=== PATIENT | male | born 1990 ===

== ENCOUNTER 2016-12-26 09:25 | Inpatient (IN) | payer MEDICAID ==
[2016-12-26 09:32] VITALS: BMI 33.4
[2016-12-26] MEDS ORDERED: Sodium Chloride 0.9% 1,000 ML IV STA (09:56)
--- NOTE | 2016-12-26 09:59 | ED PDOC ---
HPI: General Adult Time Seen by Provider: 12/26/16 09:46 Chief Complaint (Provider): Rectal bleeding History Per: Patient History/Exam Limitations: no limitations Onset/Duration Of Symptoms: Days (Yesterday) Have you had recent travel within the past 21 days to any of the following countries: [place], [place], [place] or [place]?: No Current Symptoms Are (Timing): Still Present Additional Complaint(s): Pt. felt weak yesterday. Today he felt light-headed as well. Pt. then noted red blood in stool. Has hx of the same with an ulcer in colon that was patched. Denies any abd pain, chest pain, dyspnea. No numbness, tingles. No leg pain. Has had transfusions in the past. GI: does not know PCP: Axel Past Medical History Reviewed: Nursing Documentation, Vital Signs Vital Signs: Last Vital Signs Temp 99.1 F 12/26/16 09:32 Pulse 97 H 12/26/16 09:32 Resp 17 12/26/16 09:32 BP 110/72 12/26/16 09:32 Pulse Ox 98 12/26/16 12:59 - Medical History PMH: Anemia Denies: Diabetes, Hepatitis, HIV, HTN, Seizures, Sexually Transmitted Disease Other PMH: GI bleed - Surgical History Surgical History: Endoscopy (and colonoscopy) - Family History Family History: States: Unknown Family Hx - Living Arrangements Living Arrangements: With Family - Social History Current smoker - smoking cessation education provided: No Alcohol: None Drugs: Denies - Immunization History Hx Tetanus Toxoid Vaccination: No Hx Influenza Vaccination: No Hx Pneumococcal Vaccination: No - Allergies Allergies/Adverse Reactions: Allergies Allergy/AdvReac Type Severity Reaction Status Date / Time Penicillins Allergy RASH Verified 11/25/16 14:11 Review of Systems ROS Statement: Except As Marked, All Systems Reviewed And Found Negative Constitutional: Positive for: Weakness Gastrointestinal: Positive for: Hematochezia Neurological: Positive for: Weakness, Dizziness Physical Exam - Reviewed Nursing Documentation Reviewed: Yes Vital Signs Reviewed: Yes - Physical Exam Appears: Positive for: Uncomfortable Head Exam: Positive for: ATRAUMATIC, NORMAL INSPECTION, NORMOCEPHALIC Skin: Positive for: Normal Color, Warm, DRY Eye Exam: Positive for: EOMI, Normal appearance, PERRL ENT: Positive for: Normal ENT Inspection Neck: Positive for: Normal, Painless ROM Cardiovascular/Chest: Positive for: Regular Rate, Rhythm Respiratory: Positive for: CNT, Normal Breath Sounds Gastrointestinal/Abdominal: Positive for: Normal Exam, Bowel Sounds, Soft. Negative for: Tenderness Back: Positive for: Normal Inspection. Negative for: L CVA Tenderness, R CVA Tenderness Rectal: Positive for: Other (gross dark red blood present) Extremity: Positive for: Normal ROM. Negative for: Tenderness, Pedal Edema Neurologic/Psych: Positive for: Alert, Oriented - Laboratory Results Result Diagrams: 12/26/16 10:35 12/26/16 11:10 Interpretation Of Abn Labs: 7.8 hg - ECG ECG: Positive for: Interpreted By Me, Viewed By Me ECG Rhythm: Positive for: Right Bundle Branch Block O2 Sat by Pulse Oximetry: 98 Pulse Ox Interpretation: Normal - Progress ED Course And Treament: 1248: Spoke with Dr. Patino. Will admit and give further orders when pt. reaches floor. Will give 2 units prbcs considering symptomatic. AAOx3. 1305: Stable. Spoke with Dr. Pricne. Will consult. Agrees with current plan and management. - Critical Care Total Time (In Min): 30 Documented Critical Care: Time excludes all time spent performint seperately billable procedures Disposition - Clinical Impression Clinical Impression: Anemia, GI bleed - Patient ED Disposition Is Patient to be Admitted: Yes Counseled Patient/Family Regarding: Studies Performed, Diagnosis - Disposition Disposition Time: 12:58 Condition: FAIR - Pt Status Changed To: Hospital Disposition Of: Inpatient - Admit Certification Admit to Inpatient:: After my assessment, the patient will require hospitalization for at least two midnights. This is because of the severity of symptoms shown, intensity of services needed, and/or the medical risk in this patient being treated as an outpatient. - POA Present On Arrival: None
[2016-12-26 11:03] LABS: BASO % 0.7 % (0.0-2.0); EOS % 0.7 % (0.0-4.0); HEMATOCRIT 23.8 % (35.0-51.0); LYMPH # 1.1 K/uL (1.0-4.3); LYMPH % 22.7 % (20.0-40.0); MEAN CELL VOLUME 78.2 fl (80.0-94.0); MEAN CORPUSCULAR HEMOGLOBIN 25.6 pg (27.0-31.0); MEAN CORPUSCULAR HGB CONC 32.7 g/dL (33.0-37.0); MEAN PLATELET VOLUME 8.8 fl (7.2-11.7); MONO # 0.4 K/uL (0.0-0.8); MONO % 8.6 % (0.0-10.0); NEUT # 3.3 K/uL (1.8-7.0); NEUT % 67.3 % (50.0-75.0); NRBC % 0.1 % (0.0-0.0); RED CELL DISTRIBUTION WIDTH 20.4 % (11.5-14.5); WHITE BLOOD COUNT 4.9 K/uL (4.8-10.8)
[2016-12-26 11:09] LABS: ALB/GLOB RATIO 1.4 (1.0-2.1); ALKALINE PHOSPHATASE 53 U/L (38-126); ALT/SGPT 33 U/L (21-72); AST/SGOT 26 U/L (17-59); BILIRUBIN,TOTAL 0.3 mg/dl (0.2-1.3); BLOOD UREA NITROGEN 17 mg/dl (9-20); CALCIUM 8.8 mg/dL (8.4-10.2); CARBON DIOXIDE 23 mmol/L (22-30); CHLORIDE 104 mmol/L (98-107); GFR AFRICAN-AMERICAN > 60; GLUCOSE,RANDOM 91 mg/dL (75-110); SODIUM 137 mmol/l (132-148)
[2016-12-26 11:14] LABS: PARTIAL THROMBOPLASTIN TIME 27.2 Seconds (25.6-37.1)
[2016-12-26] MEDS ORDERED: Desmopressin 4 mcg/ml Inj (10 ml) IM ONE (15:15)
--- NOTE | 2016-12-26 19:48 | CP.PCM.CON ---
History of Present Illness - History of Present Illness History of Present Illness: 26 yo male with h/o gastric bypass about 10 years ago with dark red bleeding per rectum since this morning.Had similar episodes and seen at [facility] in August of this year and 3 weeks ago. In August he was told an ulcer was present but he doesn't know where. 3 weeks ago source of bleed could not be found. Had upper and lower enoscopies during both admissions. H/o chronic iron deficiency and is on supplement. Not on SSRI. On rare occasions uses excedrin for headaches. Review of Systems - Constitutional Constitutional: absent: Chills - EENT Eyes: absent: Blind Spots Ears: absent: Decreased Hearing Nose/Mouth/Throat: absent: Epistaxis - Cardiovascular Cardiovascular: absent: Chest Pain - Respiratory Respiratory: absent: Cough - Gastrointestinal Gastrointestinal: As Per HPI - Genitourinary Genitourinary: absent: Change in Urinary Stream Past Patient History - Past Medical History & Family History Past Medical History?: Yes - Past Social History Smoking Status: Never Smoked - CARDIAC Hx Hypertension: No - PULMONARY Hx Tuberculosis: No - NEUROLOGICAL Hx Seizures: No - HEMATOLOGICAL/ONCOLOGICAL Hx Anemia: Yes Hx Human Immunodeficiency Virus (HIV): No - MUSCULOSKELETAL/RHEUMATOLOGICAL Hx Falls: No Hx Herniated Disk: Yes - GASTROINTESTINAL Hx Ulcer: Yes Other/Comment: gastric bypass 2007 - GENITOURINARY/GYNECOLOGICAL Hx Sexually Transmitted Disorders: No - PSYCHIATRIC Hx Substance Use: No Other/Comment: substance abuse - SURGICAL HISTORY Other/Comment: R shoulder pinning after accident - ANESTHESIA Hx Anesthesia: Yes Hx Anesthesia Reactions: No Meds Allergies/Adverse Reactions: Allergies Allergy/AdvReac Type Severity Reaction Status Date / Time Penicillins Allergy RASH Verified 11/25/16 14:11 - Medications Medications: Current Medications Pantoprazole Sodium (Protonix Inj) 40 mg IVP DAILY AKIL Zolpidem Tartrate (Ambien) 5 mg PO HS AKIL Physical Exam - Constitutional Appears: Well - Head Exam Head Exam: ATRAUMATIC - Eye Exam Eye Exam: Normal appearance Pupil Exam: NORMAL ACCOMODATION - ENT Exam ENT Exam: Mucous Membranes Moist - Neck Exam Neck exam: Positive for: Normal Inspection - Respiratory Exam Respiratory Exam: Clear to Auscultation Bilateral - Cardiovascular Exam Cardiovascular Exam: REGULAR RHYTHM - GI/Abdominal Exam GI & Abdominal Exam: Normal Bowel Sounds, Soft. absent: Tenderness - Extremities Exam Extremities exam: Positive for: normal inspection Results - Vital Signs Recent Vital Signs: Last Vital Signs Temp 98.0 F 12/26/16 14:35 Pulse 80 12/26/16 16:25 Resp 18 12/26/16 16:25 BP 102/66 12/26/16 14:35 Pulse Ox 98 12/26/16 14:35 - Labs Result Diagrams: 12/26/16 10:35 12/26/16 11:10 Labs: Laboratory Results - last 24 hr 12/26/16 12:57 Blood Type Confirm O POSITIVE Assessment & Plan (1) GI bleed Assessment and Plan: Source of bleed unknown. Upper and lower endoscopy Tuesday to rule out ulcer, mass, or ectatic blood vessel. Followed possibly by Meckel scan. Patient is type O blood so DDAVP given and no active bleeding currently. Agree with transfusiion and for now, use of pantoprazole Status: Acute
[2016-12-27 05:57] LABS: HEMATOCRIT 23.2 % (35.0-51.0); MEAN CORPUSCULAR HGB CONC 31.7 g/dL (33.0-37.0); RED CELL DISTRIBUTION WIDTH 18.9 % (11.5-14.5); WHITE BLOOD COUNT 4.4 K/uL (4.8-10.8)
--- NOTE | 2016-12-27 07:45 | CARD ---
APPROVED REPORT EKG Measurement Heart [id number] <Conclusion> Normal sinus rhythm Normal ECG
[2016-12-27] MEDS ORDERED: Chlorhexidine Gluconate 1 APPL/PKT TP ONE (11:53)
[2016-12-27] MEDS ORDERED: Propofol 10 mg/ml Inj (20 ML) ONE ×2 (13:05→13:34)
[2016-12-27] MEDS ORDERED: Midazolam 2 MG/2 ML VIAL ONE (13:05)
[2016-12-27] MEDS ORDERED: Lactated Ringer's 500 ML IV ONE (13:20)
--- NOTE | 2016-12-27 13:36 | HP ---
HISTORY OF PRESENT ILLNESS: Mr. Jones is a 26-year-old male who was admitted via the emergency room because of abdominal discomfort and rectal bleeding on the morning of admission. He indicates that he had bright red blood per rectum, but now has small blood clots and dark stools. He also has abdominal discomfort for the past 24 hours. He was recently admitted to [facility] for similar episode and he has had multiple endoscopies indicates that he has had a clear answer as to why he keeps having gastrointestinal bleeding. PAST MEDICAL HISTORY: He had a past medical history of gastric bypass surgery 10 years ago and has had chronic anemia since. FAMILY HISTORY: Unremarkable. SOCIAL HISTORY: Socially, he does not drink or smoke. REVIEW OF SYSTEMS: Remarkable for the patient having abdominal discomfort. PHYSICAL EXAMINATION: GENERAL: The patient is alert, oriented, and appears to be in some discomfort because of abdominal cramps. VITAL SIGNS: Blood pressure 138/76, pulse of 70 and respiratory rate of 20. He is afebrile. O2 sat is 98% on room air. SKIN: Shows fair turgor. HEENT: Pupils are equal and reactive to light and accommodation. Mouth shows fair hygiene. NECK: JVP flat. LUNGS: Clear. HEART: Regular. No murmur, rub or gallop. ABDOMEN: There has been epigastric tenderness; otherwise, unremarkable. No organomegaly. Normoactive bowel sounds noted. GENITALIA: Normal. RECTAL: Unremarkable except for bloody stools. EXTREMITIES: Show no edema or cyanosis. CENTRAL NERVOUS SYSTEM: Grossly intact. LABORATORY DATA: Remarkable for hemoglobin of 7.4. There is prior transfusion of 3 units of packed blood cells. Sodium 137, potassium 4.0, BUN 17, and creatinine is 0.7. IMPRESSION: Acute gastrointestinal bleeding with iron-deficiency anemia and history of gastric bypass surgery. PLAN: Gastroenterology evaluation for possible endoscopy and colonoscopy. Transfusion of packed red blood cells. Monitor hemoglobin closely. Boni Patino MD
--- NOTE | 2016-12-27 14:20 | RAD ---
PROCEDURE: CHEST RADIOGRAPH, 1 VIEW Technique: Single view portable semi erect @ 09:50. HISTORY: anemia COMPARISON: None available. FINDINGS: LUNGS: Clear. PLEURA: No pneumothorax or pleural fluid seen. CARDIOVASCULAR: Normal. OSSEOUS STRUCTURES: No significant abnormalities. Incompletely visualized orthopedic hardware proximal right humerus. VISUALIZED UPPER ABDOMEN: Normal. OTHER FINDINGS: None. IMPRESSION: No active disease.
[2016-12-27 18:07] LABS: BASO % 0.6 % (0.0-2.0); EOS # 0.2 K/uL (0.0-0.7); EOS % 4.4 % (0.0-4.0); HEMATOCRIT 26.7 % (35.0-51.0); LYMPH # 1.3 K/uL (1.0-4.3); MEAN CELL VOLUME 82.1 fl (80.0-94.0); MEAN CORPUSCULAR HEMOGLOBIN 26.3 pg (27.0-31.0); MEAN PLATELET VOLUME 8.7 fl (7.2-11.7); MONO # 0.4 K/uL (0.0-0.8); MONO % 8.3 % (0.0-10.0); NEUT # 3.2 K/uL (1.8-7.0); NEUT % 61.7 % (50.0-75.0); WHITE BLOOD COUNT 5.2 K/uL (4.8-10.8)
[2016-12-27] MEDS ORDERED: DiphenhydrAMINE 50 mg/ml Inj IVP ONE (19:16)
[2016-12-27] MEDS ORDERED: Hydrocortisone- 100 MG in Sodium Chloride 0.9% 100 ML IVP ONE (19:23)
--- NOTE | 2016-12-27 21:52 | CP.PCM.CON ---
History of Present Illness - History of Present Illness History of Present Illness: 26 year old male with a history of gastric bypass, chronic iron deficiency anemia, intermittent GI bleeding, admitted with hematochezia and symptomatic anemia s/p PRBC transfusion with concern for transfusion reaction. The patient is receiving PRBC transfusions for symptomatic anemia and GI bleeding. Tonight , he began to experience dizzyness and itching during transfusion. The transfusion was stopped and the patient received tylenol benadryl, and hydrocortisone. His transfusion has been restarted 30 minutes after premedication and he denies further symptoms. Past medical history: Chronic GI bleeding, iron deficiency anemia Past surgical history: Gastric bypass and right shoulder surgery Family history: Denies hematologic and oncologic problems Social history: Denies tobacco, alcohol, and illicit drug use. Allergies: Penicillins Review of systems: All remaining review of systems including HEENT, cardiovascular, respiratory, gastrointestinal, genitourinary, musculoskeletal, dermatologic, neurologic, and psychiatric are negative unless mentioned in the HPI. Past Patient History - Past Medical History & Family History Past Medical History?: Yes - Past Social History Smoking Status: Never Smoked - CARDIAC Hx Hypertension: No - PULMONARY Hx Tuberculosis: No - NEUROLOGICAL Hx Seizures: No - HEMATOLOGICAL/ONCOLOGICAL Hx Anemia: Yes Hx Human Immunodeficiency Virus (HIV): No - MUSCULOSKELETAL/RHEUMATOLOGICAL Hx Falls: No Hx Herniated Disk: Yes - GASTROINTESTINAL Hx Ulcer: Yes Other/Comment: gastric bypass 2007 - GENITOURINARY/GYNECOLOGICAL Hx Sexually Transmitted Disorders: No - PSYCHIATRIC Hx Substance Use: No Other/Comment: substance abuse - SURGICAL HISTORY Other/Comment: R shoulder pinning after accident - ANESTHESIA Hx Anesthesia: Yes Hx Anesthesia Reactions: No Meds Allergies/Adverse Reactions: Allergies Allergy/AdvReac Type Severity Reaction Status Date / Time Penicillins Allergy RASH Verified 11/25/16 14:11 - Medications Medications: Current Medications Methadone HCl (Methadone) 70 mg PO DAILY [facility] Last Admin: 12/27/16 15:50 Dose: 70 mg Zolpidem Tartrate (Ambien) 5 mg PO HS [facility] Last Admin: 12/26/16 23:57 Dose: 5 mg Physical Exam - Head Exam Head Exam: ATRAUMATIC - Eye Exam Eye Exam: Normal appearance - ENT Exam ENT Exam: Mucous Membranes Dry - Respiratory Exam Respiratory Exam: NORMAL BREATHING PATTERN - Cardiovascular Exam Cardiovascular Exam: +S1, +S2 - GI/Abdominal Exam GI & Abdominal Exam: Normal Bowel Sounds - Extremities Exam Extremities exam: Positive for: normal inspection - Neurological Exam Neurological exam: Oriented x3 - Psychiatric Exam Psychiatric exam: Normal Affect, Normal Mood - Skin Skin Exam: Pallor Results - Vital Signs Recent Vital Signs: Last Vital Signs Temp 98.7 F 12/27/16 20:09 Pulse 76 12/27/16 20:09 Resp 14 12/27/16 20:09 BP 112/76 12/27/16 20:09 Pulse Ox 96 12/27/16 20:09 - Labs Result Diagrams: 12/28/16 05:00 12/26/16 11:10 Labs: Laboratory Results - last 24 hr 12/27/16 12/27/16 05:20 17:00 WBC 4.4 L 5.2 RBC 2.83 L 3.26 L Hgb 7.4 L 8.6 L Hct 23.2 L 26.7 L MCV 82.0 D 82.1 MCH 26.0 L 26.3 L MCHC 31.7 L 32.0 L RDW 18.9 H 19.0 H Plt Count 231 277 MPV 8.7 Neut % (Auto) 61.7 Lymph % (Auto) 25.0 [place] % (Auto) 8.3 Eos % (Auto) 4.4 H Baso % (Auto) 0.6 Neut # 3.2 Lymph # 1.3 [place] # 0.4 Eos # 0.2 Baso # 0.0 Assessment & Plan (1) Transfusion reaction Assessment and Plan: unlikely symptoms abated with premedication and pt was able to complete his transfusion will premedicate with future transfusions Status: Acute (2) Anemia Assessment and Plan: iron deficiency due to chronic GI bleeding, hx of gastric bypass; will start pt on IV iron anemia of acute blood loss; GI w/u in progress transfusion support PRN Status: Acute (3) Leukopenia Assessment and Plan: benign Thank you for this interesting consult. Status: Acute
[2016-12-28 06:00] LABS: HEMATOCRIT 25.8 % (35.0-51.0); MEAN CELL VOLUME 81.9 fl (80.0-94.0); MEAN CORPUSCULAR HEMOGLOBIN 26.5 pg (27.0-31.0); MEAN CORPUSCULAR HGB CONC 32.4 g/dL (33.0-37.0); RED CELL DISTRIBUTION WIDTH 17.6 % (11.5-14.5); WHITE BLOOD COUNT 3.9 K/uL (4.8-10.8)
--- NOTE | 2016-12-28 09:00 | CP.PCM.PN ---
Subjective - Date & Time of Evaluation Date of Evaluation: 12/28/16 Time of Evaluation: 08:57 - Subjective Subjective: No active bleeding seen. Having black BMs. Objective - Vital Signs/Intake and Output Vital Signs (last 24 hours): Temp Pulse Resp BP Pulse Ox 97.9 F 66 16 113/72 98 12/28/16 08:15 12/28/16 08:15 12/28/16 08:15 12/28/16 08:15 12/28/16 08:15 - Medications Medications: Current Medications Iron Sucrose 200 mg/ Sodium (Chloride) 110 mls @ 110 mls/hr IVPB DAILY AKIL Stop: 01/02/17 09:01 Methadone HCl (Methadone) 70 mg PO DAILY AKIL Last Admin: 12/27/16 15:50 Dose: 70 mg Pantoprazole Sodium (Protonix Inj) 40 mg IVP DAILY AKIL Zolpidem Tartrate (Ambien) 5 mg PO HS AKIL Last Admin: 12/27/16 22:49 Dose: 5 mg - Labs Labs: 12/28/16 05:00 12/26/16 11:10 PT 12.6 Seconds (9.8-13.1) 12/26/16 10:35 INR 1.2 (0.9-1.2) 12/26/16 10:35 APTT 27.2 Seconds (25.6-37.1) 12/26/16 10:35 - Head Exam Head Exam: ATRAUMATIC - Eye Exam Eye Exam: Normal appearance - ENT Exam ENT Exam: Mucous Membranes Moist - Neck Exam Neck Exam: Normal Inspection - Respiratory Exam Respiratory Exam: NORMAL BREATHING PATTERN - GI/Abdominal Exam GI & Abdominal Exam: Soft, Normal Bowel Sounds. absent: Tenderness Assessment and Plan (1) GI bleed Assessment & Plan: Having Meckel scan today. Colonoscopy tomorrow 8 30 AM No active bleeding seen at present Status: Acute
--- NOTE | 2016-12-28 09:13 | CP.PCM.PN ---
Subjective - Date & Time of Evaluation Date of Evaluation: 12/28/16 Time of Evaluation: 09:13 - Subjective Subjective: FEELS BETTER STILL HAS ABDOMINAL CRAMPS AND BLACK STOOLS Objective - Vital Signs/Intake and Output Vital Signs (last 24 hours): Temp Pulse Resp BP Pulse Ox 97.9 F 66 16 113/72 98 12/28/16 08:15 12/28/16 08:15 12/28/16 08:15 12/28/16 08:15 12/28/16 08:15 - Medications Medications: Current Medications Iron Sucrose 200 mg/ Sodium (Chloride) 110 mls @ 110 mls/hr IVPB DAILY AKIL Stop: 01/02/17 09:01 Methadone HCl (Methadone) 70 mg PO DAILY [facility] Last Admin: 12/27/16 15:50 Dose: 70 mg Pantoprazole Sodium (Protonix Inj) 40 mg IVP DAILY AKIL Zolpidem Tartrate (Ambien) 5 mg PO HS [facility] Last Admin: 12/27/16 22:49 Dose: 5 mg - Labs Labs: 12/28/16 05:00 12/26/16 11:10 PT 12.6 Seconds (9.8-13.1) 12/26/16 10:35 INR 1.2 (0.9-1.2) 12/26/16 10:35 APTT 27.2 Seconds (25.6-37.1) 12/26/16 10:35 - Constitutional Appears: No Acute Distress - Head Exam Head Exam: ATRAUMATIC, NORMAL INSPECTION, NORMOCEPHALIC - Eye Exam Eye Exam: EOMI, Normal appearance, PERRL Pupil Exam: NORMAL ACCOMODATION, PERRL - ENT Exam ENT Exam: Mucous Membranes Moist, Normal Exam - Neck Exam Neck Exam: Full ROM, Normal Inspection. absent: Lymphadenopathy - Respiratory Exam Respiratory Exam: Clear to Ausculation Bilateral, NORMAL BREATHING PATTERN - Cardiovascular Exam Cardiovascular Exam: REGULAR RHYTHM, +S1, +S2. absent: Murmur - GI/Abdominal Exam GI & Abdominal Exam: Soft, Normal Bowel Sounds. absent: Tenderness - Rectal Exam Rectal Exam: NORMAL INSPECTION - Extremities Exam Extremities Exam: Full ROM, Normal Capillary Refill, Normal Inspection. absent : Joint Swelling, Pedal Edema - Back Exam Back Exam: NORMAL INSPECTION - Neurological Exam Neurological Exam: Alert, Awake, CN II-XII Intact, Normal Gait, Oriented x3 - Psychiatric Exam Psychiatric exam: Normal Affect, Normal Mood - Skin Skin Exam: Dry, Intact, Normal Color, Warm Assessment and Plan - Assessment and Plan (Free Text) Assessment: ACUTE GI BLEED ANEMIA OF BLOOD LOSS HX OF GASTRIC BYPASS SURGERY Plan: CONTINUE HEME AND GI WORKUP MAY NEED IV IRON
--- NOTE | 2016-12-28 10:32 | CP.PCM.PN ---
Subjective - Date & Time of Evaluation Date of Evaluation: 12/28/16 Time of Evaluation: 09:50 - Subjective Subjective: No complaints completed PRBC transfusion overnight Venofer to be started today Objective - Vital Signs/Intake and Output Vital Signs (last 24 hours): Temp Pulse Resp BP Pulse Ox 97.9 F 66 16 113/72 98 12/28/16 08:15 12/28/16 08:15 12/28/16 08:15 12/28/16 08:15 12/28/16 08:15 - Medications Medications: Current Medications Iron Sucrose 200 mg/ Sodium (Chloride) 110 mls @ 110 mls/hr IVPB DAILY AKIL Stop: 01/02/17 09:01 Methadone HCl (Methadone) 70 mg PO DAILY [facility] Last Admin: 12/27/16 15:50 Dose: 70 mg Pantoprazole Sodium (Protonix Inj) 40 mg IVP DAILY AKIL Zolpidem Tartrate (Ambien) 5 mg PO HS AKIL Last Admin: 12/27/16 22:49 Dose: 5 mg - Labs Labs: 12/28/16 05:00 12/26/16 11:10 PT 12.6 Seconds (9.8-13.1) 12/26/16 10:35 INR 1.2 (0.9-1.2) 12/26/16 10:35 APTT 27.2 Seconds (25.6-37.1) 12/26/16 10:35 - Head Exam Head Exam: ATRAUMATIC - Eye Exam Eye Exam: Normal appearance - ENT Exam ENT Exam: Mucous Membranes Dry - Respiratory Exam Respiratory Exam: NORMAL BREATHING PATTERN - Cardiovascular Exam Cardiovascular Exam: +S1, +S2 - GI/Abdominal Exam GI & Abdominal Exam: Normal Bowel Sounds - Extremities Exam Extremities Exam: Normal Inspection Assessment and Plan (1) Anemia Assessment & Plan: iron deficiency on Venofer anemia of acute GI blood loss; GI w/u in progress transfusion support PRN Status: Acute (2) Leukopenia Status: Acute
[2016-12-28 13:04] LABS: FOLATE 17.6 ng/mL
[2016-12-28] MEDS ORDERED: Magnesium Citrate Oral SOL (300 ml) PO ONE ×2 (13:17→19:00)
--- NOTE | 2016-12-28 13:17 | NM ---
PROCEDURE: Meckel's scan HISTORY: GI bleed COMPARISON: None TECHNIQUE: 20 mCi of technetium 99 M pertechnetate administered intravenously. FINDINGS: Expected, physiologic uptake noted in the stomach, hepatobiliary system and bladder. IMPRESSION: Negative examination
[2016-12-28] MEDS ORDERED: Bisacodyl 5mg EC Tab PO ONE (15:00)
[2016-12-29 05:58] LABS: EOS # 0.2 K/uL (0.0-0.7); EOS % 4.7 % (0.0-4.0); HEMATOCRIT 29.6 % (35.0-51.0); LYMPH # 1.8 K/uL (1.0-4.3); LYMPH % 37.8 % (20.0-40.0); MEAN CELL VOLUME 82.4 fl (80.0-94.0); MEAN CORPUSCULAR HEMOGLOBIN 26.8 pg (27.0-31.0); MEAN CORPUSCULAR HGB CONC 32.6 g/dL (33.0-37.0); MEAN PLATELET VOLUME 8.7 fl (7.2-11.7); MONO # 0.5 K/uL (0.0-0.8); MONO % 9.9 % (0.0-10.0); NEUT # 2.2 K/uL (1.8-7.0); NEUT % 46.6 % (50.0-75.0); NRBC % 0.1 % (0.0-0.0); RED CELL DISTRIBUTION WIDTH 17.7 % (11.5-14.5); WHITE BLOOD COUNT 4.7 K/uL (4.8-10.8)
[2016-12-29 06:07] LABS: BLOOD UREA NITROGEN 4 mg/dl (9-20); CALCIUM 8.5 mg/dL (8.4-10.2); CARBON DIOXIDE 30 mmol/L (22-30); CHLORIDE 107 mmol/L (98-107); GFR AFRICAN-AMERICAN > 60; GLUCOSE,RANDOM 80 mg/dL (75-110); SODIUM 142 mmol/l (132-148)
[2016-12-29] MEDS ORDERED: Lactated Ringer's 500 ML IV ONE (08:02)
[2016-12-29] MEDS ORDERED: Propofol 10 mg/ml Inj (20 ML) ONE (08:23)
[2016-12-29] MEDS ORDERED: Lidocaine 2% MPF (5 ml) Inj ONE (08:24)
[2016-12-29 11:53] VITALS: BP 125/79; PULSE 90; RESP 18; TEMP 97.8; O2SAT 97
--- NOTE | 2016-12-29 12:36 | CP.PCM.DIS ---
Provider - Provider Date of Admission: 12/26/16 12:49 Attending physician: Boni Patino MD Time Spent in preparation of Discharge (in minutes): 30 Diagnosis - Discharge Diagnosis (1) Anemia Status: Acute (2) GI bleed Status: Acute (3) Transfusion reaction Status: Acute Hospital Course - Lab Results Lab Results: Most Recent Lab Values WBC 4.7 K/uL (4.8-10.8) L 12/29/16 05:15 RBC 3.60 Mil/uL (4.40-5.90) L 12/29/16 05:15 Hgb 9.6 g/dL (12.0-18.0) L 12/29/16 05:15 Hct 29.6 % (35.0-51.0) L 12/29/16 05:15 MCV 82.4 fl (80.0-94.0) 12/29/16 05:15 MCH 26.8 pg (27.0-31.0) L 12/29/16 05:15 MCHC 32.6 g/dL (33.0-37.0) L 12/29/16 05:15 RDW 17.7 % (11.5-14.5) H 12/29/16 05:15 Plt Count 287 K/uL (130-400) 12/29/16 05:15 MPV 8.7 fl (7.2-11.7) 12/29/16 05:15 Neut % (Auto) 46.6 % (50.0-75.0) L 12/29/16 05:15 Lymph % (Auto) 37.8 % (20.0-40.0) 12/29/16 05:15 [place] % (Auto) 9.9 % (0.0-10.0) 12/29/16 05:15 Eos % (Auto) 4.7 % (0.0-4.0) H 12/29/16 05:15 Baso % (Auto) 1.0 % (0.0-2.0) 12/29/16 05:15 Neut # 2.2 K/uL (1.8-7.0) 12/29/16 05:15 Lymph # 1.8 K/uL (1.0-4.3) 12/29/16 05:15 [place] # 0.5 K/uL (0.0-0.8) 12/29/16 05:15 Eos # 0.2 K/uL (0.0-0.7) 12/29/16 05:15 Baso # 0.0 K/uL (0.0-0.2) 12/29/16 05:15 Retic Count 1.8 % (0.5-1.5) H 12/28/16 05:00 PT 12.6 Seconds (9.8-13.1) 12/26/16 10:35 INR 1.2 (0.9-1.2) 12/26/16 10:35 APTT 27.2 Seconds (25.6-37.1) 12/26/16 10:35 Sodium 142 mmol/l (132-148) 12/29/16 05:15 Potassium 4.0 MMOL/L (3.6-5.0) 12/29/16 05:15 Chloride 107 mmol/L (98-107) 12/29/16 05:15 Carbon Dioxide 30 mmol/L (22-30) 12/29/16 05:15 Anion Gap 8 (10-20) L 12/29/16 05:15 BUN 4 mg/dl (9-20) L 12/29/16 05:15 Creatinine 0.6 mg/dL (0.8-1.5) L 12/29/16 05:15 Est GFR ( Amer) > 60 12/29/16 05:15 Est GFR (Non-Af Amer) > 60 12/29/16 05:15 Random Glucose 80 mg/dL (75-110) 12/29/16 05:15 Calcium 8.5 mg/dL (8.4-10.2) 12/29/16 05:15 Ferritin 11.0 ng/mL 12/28/16 05:00 Total Bilirubin 0.3 mg/dl (0.2-1.3) 12/26/16 11:10 AST 26 U/L (17-59) 12/26/16 11:10 ALT 33 U/L (21-72) 12/26/16 11:10 Alkaline Phosphatase 53 U/L (38-126) 12/26/16 11:10 Troponin I < 0.0120 ng/mL (0.00-0.120) 12/26/16 11:10 Total Protein 6.0 G/DL (6.3-8.2) L 12/26/16 11:10 Albumin 3.6 g/dL (3.5-5.0) 12/26/16 11:10 Globulin 2.5 gm/dL (2.2-3.9) 12/26/16 11:10 Albumin/Globulin Ratio 1.4 (1.0-2.1) 12/26/16 11:10 Vitamin B12 894 pg/mL (239-931) 12/28/16 05:00 Folate 17.6 ng/mL 12/28/16 05:00 Stool Occult Blood Positive (NEGATIVE) H 12/26/16 10:35 Blood Type O POSITIVE 12/26/16 10:35 Blood Type Confirm O POSITIVE 12/26/16 12:57 Antibody Screen Negative 12/26/16 10:35 Crossmatch See Detail 12/26/16 10:35 BBK History Checked No verified bt 12/26/16 10:35 Discharge Exam - Head Exam Head Exam: ATRAUMATIC - Eye Exam Eye Exam: EOMI, Normal appearance, PERRL Pupil Exam: NORMAL ACCOMODATION, PERRL - GI/Abdominal Exam GI & Abdominal Exam: Normal Bowel Sounds - Rectal Exam Rectal Exam: NORMAL INSPECTION - Neurological Exam Neurological exam: Alert, CN II-XII Intact, Normal Gait, Oriented x3, Reflexes Normal - Psychiatric Exam Psychiatric exam: Normal Affect, Normal Mood - Skin Skin Exam: Dry, Intact, Normal Color, Warm Discharge Plan - Follow Up Plan Condition: FAIR Disposition: HOME/ ROUTINE Patient education suggested?: Yes Additional Instructions: discharge today follow up with dr cole
--- NOTE | 2016-12-29 13:09 | CP.PCM.PN ---
Subjective - Date & Time of Evaluation Date of Evaluation: 12/29/16 Time of Evaluation: 11:30 - Subjective Subjective: Feeling better Objective - Vital Signs/Intake and Output Vital Signs (last 24 hours): Temp Pulse Resp BP Pulse Ox 97.8 F 90 18 125/79 97 12/29/16 11:52 12/29/16 11:52 12/29/16 11:52 12/29/16 11:52 12/29/16 11:52 Intake and Output: 12/29/16 12/29/16 06:59 18:59 Intake Total 150 Balance 150 - Medications Medications: Current Medications Iron Sucrose 200 mg/ Sodium (Chloride) 110 mls @ 110 mls/hr IVPB DAILY [facility] Stop: 01/02/17 09:01 Last Admin: 12/29/16 09:47 Dose: 110 mls/hr Methadone HCl (Methadone) 70 mg PO DAILY [facility] Last Admin: 12/29/16 09:47 Dose: 70 mg Pantoprazole Sodium (Protonix Inj) 40 mg IVP DAILY [facility] Last Admin: 12/29/16 09:44 Dose: 40 mg Zolpidem Tartrate (Ambien) 5 mg PO HS [facility] Last Admin: 12/28/16 23:10 Dose: 5 mg - Labs Labs: 12/29/16 05:15 12/29/16 05:15 PT 12.6 Seconds (9.8-13.1) 12/26/16 10:35 INR 1.2 (0.9-1.2) 12/26/16 10:35 APTT 27.2 Seconds (25.6-37.1) 12/26/16 10:35 - Head Exam Head Exam: ATRAUMATIC - Eye Exam Eye Exam: Normal appearance - ENT Exam ENT Exam: Mucous Membranes Dry - Respiratory Exam Respiratory Exam: NORMAL BREATHING PATTERN - Cardiovascular Exam Cardiovascular Exam: +S1, +S2 - GI/Abdominal Exam GI & Abdominal Exam: Normal Bowel Sounds - Extremities Exam Extremities Exam: Normal Inspection Assessment and Plan (1) Anemia Assessment & Plan: iron deficiency hematochezia H/H improved s/p PRBC transfusion and Venofer Status: Acute (2) Leukopenia Assessment & Plan: mild, benign Status: Acute
== END 2016-12-29 14:10 | disposition home or self-care (01) | DRG 175 ==
LOC: H.ER 09:25 → H.ERHOLD 12:49 → H.TEL 14:34
PROVIDERS: ADMIT Internal Medicine Pulmonary Disease; ATTEND Internal Medicine Pulmonary Disease
PROC: 30233N1 Transfusion of Nonautologous Red Blood Cells into Peripheral Vein, Percutaneous Approach (ICD-10-PCS; principal; 2016-12-26)
PROC: 0DB68ZX Excision of Stomach, Via Natural or Artificial Opening Endoscopic, Diagnostic (ICD-10-PCS; 2016-12-27)
PROC: 0DJD8ZZ Inspection of Lower Intestinal Tract, Via Natural or Artificial Opening Endoscopic (ICD-10-PCS; 2016-12-27)
PROC: 0DB98ZX Excision of Duodenum, Via Natural or Artificial Opening Endoscopic, Diagnostic (ICD-10-PCS; 2016-12-27 12:30)
PROC: 0DBH8ZX Excision of Cecum, Via Natural or Artificial Opening Endoscopic, Diagnostic (ICD-10-PCS; 2016-12-29)
PROC: 0DBL8ZX Excision of Transverse Colon, Via Natural or Artificial Opening Endoscopic, Diagnostic (ICD-10-PCS; 2016-12-29)
PROC: 0DBN8ZX Excision of Sigmoid Colon, Via Natural or Artificial Opening Endoscopic, Diagnostic (ICD-10-PCS; 2016-12-29)
PROC: 0DBP8ZX Excision of Rectum, Via Natural or Artificial Opening Endoscopic, Diagnostic (ICD-10-PCS; 2016-12-29)
PROC: 0DBB8ZX Excision of Ileum, Via Natural or Artificial Opening Endoscopic, Diagnostic (ICD-10-PCS; 2016-12-29)
DX: K92.2 Gastrointestinal hemorrhage, unspecified (principal); K92.1 Melena; D62 Acute posthemorrhagic anemia; D72.819 Decreased white blood cell count, unspecified; T80.92XA Unspecified transfusion reaction, initial encounter; Y84.8 Other medical procedures as the cause of abnormal reaction of the patient, or of later complication, without mention of misadventure at the time of the procedure; L29.9 Pruritus, unspecified; R42 Dizziness and giddiness; Z98.84 Bariatric surgery status; Z87.19 Personal history of other diseases of the digestive system; R53.1 Weakness; K64.9 Unspecified hemorrhoids; Z88.0 Allergy status to penicillin

== ENCOUNTER 2016-12-31 20:32 | Inpatient (IN) | payer MEDICAID ==
[2016-12-31 20:32] VITALS: BMI 33.4
[2016-12-31] MEDS ORDERED: Sodium Chloride 0.9% 1,000 ML IV STA (21:04)
--- NOTE | 2016-12-31 21:42 | ED PDOC ---
HPI: Abdomen Time Seen by Provider: 12/31/16 20:47 Chief Complaint (Nursing): GI Problem Chief Complaint (Provider): GI problem History Per: Patient History/Exam Limitations: no limitations Onset/Duration Of Symptoms: Days (x1) Current Symptoms Are (Timing): Still Present Additional Complaint(s): Mynor Jones is a 26 year old male who presents to the emergency department with a complaint of bloody stools associated with epigastric pain, malaise, fatigue, general weakness, decreased appetite and vomiting ongoing for 1 day. Denied NSAID or alcohol use. Patient was recently discharged from [facility] for GI bleed and anemia 2 days ago that required blood transfusion. PMD: none provided Past Medical History Reviewed: Historical Data, Nursing Documentation, Vital Signs Vital Signs: Last Vital Signs Temp 98.4 F 01/01/17 15:52 Pulse 75 01/01/17 15:52 Resp 11 L 01/01/17 15:52 BP 113/65 01/01/17 15:52 Pulse Ox 99 01/01/17 15:52 - Medical History PMH: Anemia Denies: Diabetes, Hepatitis, HIV, HTN, Seizures, Sexually Transmitted Disease - Surgical History Surgical History: Endoscopy (and colonoscopy) - Family History Family History: States: Unknown Family Hx - Immunization History Hx Tetanus Toxoid Vaccination: No Hx Influenza Vaccination: No Hx Pneumococcal Vaccination: No - Home Medications Home Medications: Ambulatory Orders Medication Instructions Recorded Ferrous Sulfate [Feosol] 325 mg PO BID #60 tab 12/29/16 Pantoprazole [Protonix] 40 mg PO DAILY #30 ect 12/29/16 - Allergies Allergies/Adverse Reactions: Allergies Allergy/AdvReac Type Severity Reaction Status Date / Time Penicillins Allergy RASH Verified 11/25/16 14:11 Review of Systems ROS Statement: Except As Marked, All Systems Reviewed And Found Negative Constitutional: Positive for: Weakness (fatigue), Malaise Gastrointestinal: Positive for: Vomiting, Abdominal Pain (epigastric ), Melena, Other (decreased appetite) Physical Exam - Reviewed Nursing Documentation Reviewed: Yes Vital Signs Reviewed: Yes - Physical Exam Appears: Positive for: In Acute Distress Head Exam: Positive for: ATRAUMATIC, NORMOCEPHALIC Skin: Positive for: Dry, Pallor Eye Exam: Positive for: EOMI, PERRL, Other (pale conjunctivae) ENT: Positive for: Other (dry mucus membranes) Neck: Positive for: Painless ROM, Supple Cardiovascular/Chest: Positive for: Tachycardia. Negative for: Murmur Respiratory: Positive for: Normal Breath Sounds. Negative for: Respiratory Distress Gastrointestinal/Abdominal: Positive for: Soft, Tenderness (mild epigastric ttp) Back: Positive for: Normal Inspection. Negative for: Vertebral Tenderness Extremity: Positive for: Normal ROM. Negative for: Deformity Lymphatic: Negative for: Adenopathy Neurologic/Psych: Positive for: Alert. Negative for: Motor/Sensory Deficits - Laboratory Results Result Diagrams: 01/01/17 08:20 01/01/17 08:20 - ECG O2 Sat by Pulse Oximetry: 100 (RA) Pulse Ox Interpretation: Normal - Progress Re-evaluation Time: 23:00 Condition: Improving,but remains with symptoms (color improving with IV fluids) - Critical Care Total Time (In Min): 30 Documented Critical Care: Time excludes all time spent performint seperately billable procedures Medical Decision Making Medical Decision Making: Initial Impression: GI bleed; Anemia Initial Plan: * Packed cells leukoreduced * Type and screen * EKG * CMP * Drug screen, urine * Lipase * Urine dipstick * CBC * PTT * PT * NS 1,000ml IV per 1,000mls/hr * Protonix INJ 40mg IVP Time: 2100 --Prior admission reviewed: colonoscopy and endoscopy done by Dr. Prince with no active bleeding noted. Blood and iron transfusion given to patient. Discussed case with Dr. Patino for admittance to hospital. Pending ED work-up. NATTY Knox Hospitalist for ICU admission Scribe Attestation: Documented by Dimple Traylor, acting as a scribe for Radha Hugo MD. Provider Scribe Attestation: All medical record entries made by the Scribe were at my direction and personally dictated by me. I have reviewed the chart and agree that the record accurately reflects my personal performance of the history, physical exam, medical decision making, and the department course for this patient. I have also personally directed, reviewed, and agree with the discharge instructions and disposition. Disposition - Clinical Impression Clinical Impression: GI bleed, Anemia Counseled Patient/Family Regarding: Studies Performed, Diagnosis - Disposition Disposition Time: 21:00 Condition: CRITICAL - Pt Status Changed To: Hospital Disposition Of: Inpatient - Admit Certification Admit to Inpatient:: After my assessment, the patient will require hospitalization for at least two midnights. This is because of the severity of symptoms shown, intensity of services needed, and/or the medical risk in this patient being treated as an outpatient. - POA Present On Arrival: None
[2016-12-31 22:42] LABS: ALKALINE PHOSPHATASE 38 U/L (38-126); ALT/SGPT 37 U/L (21-72); AST/SGOT 36 U/L (17-59); BILIRUBIN,TOTAL 0.5 mg/dl (0.2-1.3); BLOOD UREA NITROGEN 18 mg/dl (9-20); CALCIUM 8.3 mg/dL (8.4-10.2); CARBON DIOXIDE 24 mmol/L (22-30); CHLORIDE 106 mmol/L (98-107); GFR AFRICAN-AMERICAN > 60; GLUCOSE,RANDOM 103 mg/dL (75-110); LIPASE 33 U/L (23-300); SODIUM 138 mmol/l (132-148)
[2016-12-31 22:43] LABS: ALB/GLOB RATIO 1.3 (1.0-2.1)
[2016-12-31 23:54] LABS: BASO % 0.4 % (0.0-2.0); EOS # 0.1 K/uL (0.0-0.7); EOS % 0.7 % (0.0-4.0); HEMATOCRIT 25.1 % (35.0-51.0); LYMPH # 1.6 K/uL (1.0-4.3); LYMPH % 21.5 % (20.0-40.0); MEAN CELL VOLUME 83.8 fl (80.0-94.0); MEAN CORPUSCULAR HEMOGLOBIN 26.8 pg (27.0-31.0); MEAN PLATELET VOLUME 8.6 fl (7.2-11.7); MONO # 0.5 K/uL (0.0-0.8); MONO % 6.8 % (0.0-10.0); NEUT # 5.4 K/uL (1.8-7.0); NEUT % 70.6 % (50.0-75.0); RED CELL DISTRIBUTION WIDTH 18.4 % (11.5-14.5); WHITE BLOOD COUNT 7.6 K/uL (4.8-10.8)
[2017-01-01 00:10] LABS: ALB/GLOB RATIO 1.4 (1.0-2.1); ALKALINE PHOSPHATASE 49 U/L (38-126); ALT/SGPT 32 U/L (21-72); AST/SGOT 28 U/L (17-59); BILIRUBIN,TOTAL 0.3 mg/dl (0.2-1.3); BLOOD UREA NITROGEN 17 mg/dl (9-20); CALCIUM 8.4 mg/dL (8.4-10.2); CARBON DIOXIDE 25 mmol/L (22-30); CHLORIDE 106 mmol/L (98-107); GFR AFRICAN-AMERICAN > 60; GLUCOSE,RANDOM 104 mg/dL (75-110); LIPASE 37 U/L (23-300); POTASSIUM 4.4 MMOL/L (3.6-5.0); SODIUM 139 mmol/l (132-148); TOTAL PROTEIN 5.7 G/DL (6.3-8.2)
--- NOTE | 2017-01-01 00:39 | CP.PCM.CON ---
History of Present Illness - History of Present Illness History of Present Illness: REASON FOR CONSULT: GI BLEED CC: BLEEDING HPI: 26 year old male PMH GI bleed, iron deficiency anemia, gastric bypass, Opioid abuse on Methadone, recently discharged 2 days ago for GIB during which Meckel scan, colonoscopy x2, upper endo were all negative and without evidence of bleed , returns today with another large episode of melena associated w dizziness, weakness, diaphoresis, and one episode of NBNB emesis. Patient has also had 2 additional admissions to [facility] for same reason. In ER, patient H/H 8.0/25.1, without further episodes of melena or hematochezia upon arrival. Patient was mildly hypotensive on arrival with systolic BP ranging in the high 90s with mild tachycardia in low 100s. Patient is now more stable. 2 units PRBC ordered per ER and to be transfused. Patient was seen by Drs. Prince and Samia during last admission 2 days ago. Will reconsult. At this time, patient is HD stable, no acute distress. ROS: per HPI all other systems reviewed and negative by me PMSH: GI bleed of unknown etiology, iron deficiency anemia, Gastric Bypass, R shoulder surgery, former Opiate abuse via Percocet now on Methadone for 3 weeks FH: denies SH: occasional ETOH, no tobacco, Methadone for Opiate Abuse (Percocet, no IVDU) Meds: as below Allergies: NKDA EXAM: vitals Temp Pulse Resp BP Pulse Ox 98.1 F 85 16 125/78 98 01/01/17 00:18 01/01/17 00:18 01/01/17 00:18 01/01/17 00:18 01/01/17 00:07 GEN: awake, alert, cooperative, pale, WDWN HEENT: NCAT, PERRL, EOMI HEART: +S1S2 RRR LUNG: CTAB, NO WRR ABD: SOFT NT ND NO MASS, NO HSM EXT: WARM WELL PERFUSED SKIN: WARM DRY NEURO: AAOX3, REFLEXES INTACT, STRENGTH EQUAL PSYCH: NORMAL MOOD NORMAL AFFECT 12/31/16 23:40 12/31/16 22:20 Active Medications 01/01/17 00:15 Acetaminophen [Tylenol 325mg tab] 650 mg PO Q6H PRN Ondansetron [Zofran Inj] 4 mg IVP Q6H PRN ASSESSMENT AND PLAN 26 year old male PMH GI bleed, iron deficiency anemia, gastric bypass, Opioid abuse on Methadone, recently discharged 2 days ago for GIB during which Meckel scan, colonoscopy x2, upper endo were all negative and without evidence of bleed , returns today with another large episode of melena associated w dizziness, weakness, diaphoresis, and one episode of NBNB emesis. Patient has also had 2 additional admissions to [facility] for same reason. In ER, patient H/H 8.0/25.1, without further episodes of melena or hematochezia upon arrival. Patient was mildly hypotensive on arrival with systolic BP ranging in the high 90s with mild tachycardia in low 100s. Patient is now more stable. 2 units PRBC ordered per ER and to be transfused. Patient was seen by Drs. Prince and Samia during last admission 2 days ago. Will reconsult. At this time, patient is HD stable, no acute distress. 1. GI BLEED 2. Anemia, iron deficiency/acute blood loss 3. Hx Gastric Bypass 4. Hx Opiod Abuse on Methadone - Patient to receive 2 units PRBC, H/H 8.0/25.1, symptomatic anemia. Currently HD stable. - Protonix 40MG IV Q12, NPO, and maintenance fluids D5 1/2 NS + 20 KCl @ 125 cc/ hr - Drs. Prince and Samia on consult for further recommendations - Pathology report from Colonoscopy 12/29/16 showed mixed moderate chronic mild acute inflammation in lamina propria and focal acute cryptitis. - Confirm methadone dose in AM VTE ppx SCDs Past Patient History - Past Medical History & Family History Past Medical History?: Yes - Past Social History Smoking Status: Never Smoked - CARDIAC Hx Hypertension: No - PULMONARY Hx Tuberculosis: No - NEUROLOGICAL Hx Seizures: No - ENDOCRINE/METABOLIC Hx Endocrine Disorders: Yes (ANEMIA) - HEMATOLOGICAL/ONCOLOGICAL Hx Blood Disorders: Yes - MUSCULOSKELETAL/RHEUMATOLOGICAL Hx Musculoskeletal Disorders: Yes - GASTROINTESTINAL Hx Gastrointestinal Disorders: Yes Hx Ulcer: Yes Other/Comment: gastric bypass 2007 - GENITOURINARY/GYNECOLOGICAL Hx Sexually Transmitted Disorders: No - PSYCHIATRIC Hx Substance Use: No Other/Comment: substance abuse - SURGICAL HISTORY Hx Surgeries: Yes - ANESTHESIA Hx Anesthesia: Yes Hx Anesthesia Reactions: No Meds Allergies/Adverse Reactions: Allergies Allergy/AdvReac Type Severity Reaction Status Date / Time Penicillins Allergy RASH Verified 11/25/16 14:11 - Medications Medications: Current Medications Acetaminophen (Tylenol 325mg Tab) 650 mg PO Q6H PRN PRN Reason: Fever >100.4 F Ondansetron HCl (Zofran Inj) 4 mg IVP Q6H PRN PRN Reason: Nausea/Vomiting Results - Vital Signs Recent Vital Signs: Last Vital Signs Temp 98.1 F 01/01/17 00:18 Pulse 85 01/01/17 00:18 Resp 16 01/01/17 00:18 BP 125/78 01/01/17 00:18 Pulse Ox 98 01/01/17 00:07 - Labs Result Diagrams: 12/31/16 23:40 12/31/16 22:20 Labs: Laboratory Results - last 24 hr 12/31/16 12/31/16 22:20 23:40 WBC 7.6 D RBC 2.99 L Hgb 8.0 L Hct 25.1 L MCV 83.8 MCH 26.8 L MCHC 32.0 L RDW 18.4 H Plt Count 318 MPV 8.6 Neut % (Auto) 70.6 Lymph % (Auto) 21.5 [place] % (Auto) 6.8 Eos % (Auto) 0.7 Baso % (Auto) 0.4 Neut # 5.4 Lymph # 1.6 [place] # 0.5 Eos # 0.1 Baso # 0.0 Sodium 138 Potassium 5.0 Chloride 106 Carbon Dioxide 24 Anion Gap 13 BUN 18 Creatinine 0.6 L Est GFR ( Amer) > 60 Est GFR (Non-Af Amer) > 60 Random Glucose 103 Calcium 8.3 L Total Bilirubin 0.5 AST 36 ALT 37 Alkaline Phosphatase 38 D Total Protein 5.0 L Albumin 2.8 L D Globulin 2.2 Albumin/Globulin Ratio 1.3 Lipase 33
[2017-01-01] MEDS ORDERED: Potassium Ch 20mEq in D5-1/2NS 1,000 ML IV SCH (00:45)
[2017-01-01 00:58] LABS: PARTIAL THROMBOPLASTIN TIME 27.4 Seconds (25.6-37.1)
[2017-01-01 08:48] LABS: HEMATOCRIT 23.3 % (35.0-51.0); MEAN CELL VOLUME 84.8 fl (80.0-94.0); MEAN CORPUSCULAR HEMOGLOBIN 27.9 pg (27.0-31.0); MEAN CORPUSCULAR HGB CONC 32.9 g/dL (33.0-37.0); WHITE BLOOD COUNT 5.4 K/uL (4.8-10.8)
[2017-01-01 08:55] LABS: BLOOD UREA NITROGEN 18 mg/dl (9-20); CARBON DIOXIDE 26 mmol/L (22-30); CHLORIDE 110 mmol/L (98-107); GFR AFRICAN-AMERICAN > 60; GLUCOSE,RANDOM 89 mg/dL (75-110); MAGNESIUM 1.9 MG/DL (1.6-2.3); PHOSPHOROUS 3.6 mg/dl (2.5-4.5); POTASSIUM 4.3 MMOL/L (3.6-5.0); SODIUM 141 mmol/l (132-148)
[2017-01-01] MEDS ORDERED: DiphenhydrAMINE 50 mg/ml Inj IVP ONE (11:30)
--- NOTE | 2017-01-01 13:30 | CARD ---
APPROVED REPORT EKG Measurement Heart [id number] <Conclusion> Normal sinus rhythm Normal ECG
--- NOTE | 2017-01-01 15:01 | CP.PCM.CON ---
History of Present Illness - History of Present Illness History of Present Illness: 26 year old male with a history of gastric bypass, chronic iron deficiency anemia, intermittent GI bleeding, recently admitted with hematochezia and symptomatic anemia s/p PRBC transfusion. The patient was recently discharged a few days ago for hematochezia and symptomatic anemia. He underwent GI work up and the location of bleeding was not found but resolved. He reports since leaving the hospital he began to experience fatigue and a bowel movement with a large amount of blood which prompted him to come back to the hospital. He is currently on his 3rd unit of PRBC and reports to feeling better. Past medical history: Chronic GI bleeding, iron deficiency anemia Past surgical history: Gastric bypass and right shoulder surgery Family history: Denies hematologic and oncologic problems Social history: Denies tobacco, alcohol, and illicit drug use. Allergies: Penicillins Review of systems: All remaining review of systems including HEENT, cardiovascular, respiratory, gastrointestinal, genitourinary, musculoskeletal, dermatologic, neurologic, and psychiatric are negative unless mentioned in the HPI. Past Patient History - Past Medical History & Family History Past Medical History?: Yes - Past Social History Smoking Status: Never Smoked - CARDIAC Hx Hypertension: No - PULMONARY Hx Tuberculosis: No - NEUROLOGICAL Hx Seizures: No - HEENT Hx HEENT Problems: No - RENAL Hx Chronic Kidney Disease: No - ENDOCRINE/METABOLIC Hx Endocrine Disorders: Yes (ANEMIA) - HEMATOLOGICAL/ONCOLOGICAL Hx Blood Disorders: Yes - INTEGUMENTARY Hx Dermatological Problems: No - MUSCULOSKELETAL/RHEUMATOLOGICAL Hx Musculoskeletal Disorders: Yes - GASTROINTESTINAL Hx Gastrointestinal Disorders: Yes Hx Ulcer: Yes Other/Comment: gastric bypass 2007 - GENITOURINARY/GYNECOLOGICAL Hx Sexually Transmitted Disorders: No - PSYCHIATRIC Hx Substance Use: No Other/Comment: substance abuse - SURGICAL HISTORY Hx Surgeries: Yes - ANESTHESIA Hx Anesthesia: Yes Hx Anesthesia Reactions: No Meds Allergies/Adverse Reactions: Allergies Allergy/AdvReac Type Severity Reaction Status Date / Time Penicillins Allergy RASH Verified 11/25/16 14:11 - Medications Medications: Current Medications Acetaminophen (Tylenol 325mg Tab) 650 mg PO Q6H PRN PRN Reason: Fever >100.4 F Potassium Chloride/Dextrose/Sod Cl (Potassium Chl 20 Meq In D5-1/2ns) 1,000 mls @ 125 mls/hr IV .Q8H AKIL Stop: 01/02/17 00:37 Last Admin: 01/01/17 06:11 Dose: 125 mls/hr Methadone HCl (Methadone) 70 mg PO DAILY [facility] Last Admin: 01/01/17 12:24 Dose: 70 mg Ondansetron HCl (Zofran Inj) 4 mg IVP Q6H PRN PRN Reason: Nausea/Vomiting Pantoprazole Sodium (Protonix Inj) 40 mg IVP Q12 [facility] Last Admin: 01/01/17 09:46 Dose: 40 mg Physical Exam - Head Exam Head Exam: ATRAUMATIC - Eye Exam Eye Exam: Normal appearance - ENT Exam ENT Exam: Mucous Membranes Dry - Respiratory Exam Respiratory Exam: NORMAL BREATHING PATTERN - Cardiovascular Exam Cardiovascular Exam: +S1, +S2 - GI/Abdominal Exam GI & Abdominal Exam: Normal Bowel Sounds - Extremities Exam Extremities exam: Positive for: normal inspection - Neurological Exam Neurological exam: Oriented x3 - Psychiatric Exam Psychiatric exam: Normal Affect, Normal Mood - Skin Skin Exam: Warm Results - Vital Signs Recent Vital Signs: Last Vital Signs Temp 98 F 01/01/17 08:00 Pulse 81 01/01/17 14:00 Resp 14 01/01/17 14:00 BP 115/61 01/01/17 14:00 Pulse Ox 95 01/01/17 14:00 - Labs Result Diagrams: 01/01/17 08:20 01/01/17 08:20 Labs: Laboratory Results - last 24 hr 12/31/16 12/31/16 12/31/16 22:20 23:40 23:40 WBC 7.6 D RBC 2.99 L Hgb 8.0 L Hct 25.1 L MCV 83.8 MCH 26.8 L MCHC 32.0 L RDW 18.4 H Plt Count 318 MPV 8.6 Neut % (Auto) 70.6 Lymph % (Auto) 21.5 [place] % (Auto) 6.8 Eos % (Auto) 0.7 Baso % (Auto) 0.4 Neut # 5.4 Lymph # 1.6 [place] # 0.5 Eos # 0.1 Baso # 0.0 PT INR APTT Sodium 138 139 Potassium 5.0 4.4 Chloride 106 106 Carbon Dioxide 24 25 Anion Gap 13 13 BUN 18 17 Creatinine 0.6 L 0.6 L Est GFR ( Amer) > 60 > 60 Est GFR (Non-Af Amer) > 60 > 60 Random Glucose 103 104 Calcium 8.3 L 8.4 Phosphorus Magnesium Total Bilirubin 0.5 0.3 AST 36 28 ALT 37 32 Alkaline Phosphatase 38 D 49 Total Protein 5.0 L 5.7 L Albumin 2.8 L D 3.3 L Globulin 2.2 2.4 Albumin/Globulin Ratio 1.3 1.4 Lipase 33 37 Urine Opiates Screen Urine Methadone Screen Ur Barbiturates Screen Ur Phencyclidine Scrn Ur Amphetamines Screen U Benzodiazepines Scrn U Oth Cocaine Metabols U Cannabinoids Screen Blood Type Antibody Screen Crossmatch BBK History Checked 12/31/16 01/01/17 01/01/17 23:56 00:30 02:00 WBC RBC Hgb Hct MCV MCH MCHC RDW Plt Count MPV Neut % (Auto) Lymph % (Auto) [place] % (Auto) Eos % (Auto) Baso % (Auto) Neut # Lymph # [place] # Eos # Baso # PT 12.2 INR 1.2 APTT 27.4 Sodium Potassium Chloride Carbon Dioxide Anion Gap BUN Creatinine Est GFR ( Amer) Est GFR (Non-Af Amer) Random Glucose Calcium Phosphorus 3.4 Magnesium Total Bilirubin AST ALT Alkaline Phosphatase Total Protein Albumin Globulin Albumin/Globulin Ratio Lipase Urine Opiates Screen Urine Methadone Screen Ur Barbiturates Screen Ur Phencyclidine Scrn Ur Amphetamines Screen U Benzodiazepines Scrn U Oth Cocaine Metabols U Cannabinoids Screen Blood Type O POSITIVE Antibody Screen Negative Crossmatch See Detail BBK History Checked Patient has bt 01/01/17 01/01/17 01/01/17 08:20 08:20 11:40 WBC 5.4 RBC 2.75 L Hgb 7.7 L Hct 23.3 L MCV 84.8 MCH 27.9 MCHC 32.9 L RDW 17.0 H Plt Count 246 MPV Neut % (Auto) Lymph % (Auto) [place] % (Auto) Eos % (Auto) Baso % (Auto) Neut # Lymph # [place] # Eos # Baso # PT INR APTT Sodium 141 Potassium 4.3 Chloride 110 H Carbon Dioxide 26 Anion Gap 9 L BUN 18 Creatinine 0.6 L Est GFR ( Amer) > 60 Est GFR (Non-Af Amer) > 60 Random Glucose 89 Calcium 8.0 L Phosphorus 3.6 Magnesium 1.9 Total Bilirubin AST ALT Alkaline Phosphatase Total Protein Albumin Globulin Albumin/Globulin Ratio Lipase Urine Opiates Screen Negative Urine Methadone Screen Positive H Ur Barbiturates Screen Negative Ur Phencyclidine Scrn Negative Ur Amphetamines Screen Negative U Benzodiazepines Scrn Positive U Oth Cocaine Metabols Negative U Cannabinoids Screen Negative Blood Type Antibody Screen Crossmatch BBK History Checked Assessment & Plan (1) Anemia Assessment and Plan: acute GI blood loss iron deficiency PRBC transfusion with premedication will start IV iron GI evaluation Thank you for this interesting consult. Status: Acute
--- NOTE | 2017-01-01 21:08 | HP ---
HISTORY OF PRESENT ILLNESS: Mr. Jones is a 26-year-old male who was recently discharged from [facility] following appropriate adequate evaluation for active gastrointestinal bleeding. All workup was non-revealing including endoscopy, colonoscopy, and Meckel scan. He however returns to the hospital two days following discharge because of bright red blood per rectum and low hemoglobin requiring transfusion of packed red blood cells. He denies abdominal pains but feels weak. Vital signs were noted as low blood pressure and tachycardia with heart rate in the 100s and blood pressure in the 90s. PAST MEDICAL HISTORY: Remarkable for gastric bypass surgery several years ago. He also has had recurrent gastrointestinal bleeding, source has been difficult to establish. He also is on methadone program following opiate abuse and has severe iron deficiency anemia. FAMILY HISTORY: Non-revealing. SOCIAL HISTORY: He does not drink alcohol, does not smoke but is on methadone for opiate abuse. PHYSICAL EXAMINATION: GENERAL: The patient is alert, oriented, appears very pale looking. VITAL SIGNS: Presently post transfusion of 3 units of packed red blood cells, blood pressure 114/62 with a pulse of 81, respiratory rate 18 per minute, O2 sat 98% on room air. He is afebrile. His temperature of 98 degrees Fahrenheit. SKIN: Shows fair turgor with pallor. HEENT: Conjunctiva is pale. Mouth shows fair hygiene. NECK: JVP flat. LUNGS: Clear. HEART: Regular. No murmur, rub or gallops. ABDOMEN: Soft, nontender. No organomegaly. EXTREMITIES: Shows no edema or cyanosis. GENITALIA: Normal. RECTAL: Shows bright red blood per rectum. CENTRAL NERVOUS SYSTEM: Grossly intact. LABORATORY DATA: WBC 5.4, hemoglobin 7.7, platelet count 246,000. Sodium 141, potassium 4.3, BUN 18, creatinine 0.6. PT 12.2, INR 1.2. IMPRESSION: Acute gastrointestinal bleeding, questionable source, severe anemia secondary to acute gastrointestinal bleeding (iron deficiency), hypotension secondary to blood loss acute, history of opiate abuse on methadone program. PLAN: Gastroenterology evaluation to determine the source of bleeding. Hematology evaluation for possible transfusion of more iron. If one is unable to determine the source of bleeding, the patient may need intervention of Radiology for celiac angiogram to determine source of blood loss since the Meckel's scan was already negative and workup so far has been unremarkable. We will maintain patient in ICU. Continue therapy as ordered with H2 blockers, analgesics for pain. For now, just clear liquids by mouth. Monitor blood work for hemoglobin. Boni Patino MD
--- NOTE | 2017-01-02 00:02 | CP.PCM.CON ---
History of Present Illness - History of Present Illness History of Present Illness: 26 yo male readmitted with GI bleeding. Had been an inpatient earlier in the week and underwent upper and lower endoscopy as well as Meckel Scan and source of bleed not located. Returned Tuesday after having bleeding per rectum. Review of Systems - Constitutional Constitutional: absent: Chills - EENT Eyes: absent: Change in Vision Ears: absent: Ear Discharge Nose/Mouth/Throat: absent: Epistaxis - Cardiovascular Cardiovascular: absent: Chest Pain - Respiratory Respiratory: absent: Dyspnea - Gastrointestinal Gastrointestinal: Hematochezia. absent: Abdominal Pain - Genitourinary Genitourinary: absent: Change in Urinary Stream Past Patient History - Past Medical History & Family History Past Medical History?: Yes - Past Social History Smoking Status: Never Smoked - CARDIAC Hx Hypertension: No - PULMONARY Hx Tuberculosis: No - NEUROLOGICAL Hx Seizures: No - HEENT Hx HEENT Problems: No - RENAL Hx Chronic Kidney Disease: No - ENDOCRINE/METABOLIC Hx Endocrine Disorders: Yes (ANEMIA) - HEMATOLOGICAL/ONCOLOGICAL Hx Anemia: Yes Hx Human Immunodeficiency Virus (HIV): No - INTEGUMENTARY Hx Dermatological Problems: No - MUSCULOSKELETAL/RHEUMATOLOGICAL Hx Musculoskeletal Disorders: Yes - GASTROINTESTINAL Hx Gastrointestinal Disorders: Yes Hx Ulcer: Yes Other/Comment: gastric bypass 2008 - GENITOURINARY/GYNECOLOGICAL Hx Sexually Transmitted Disorders: No - PSYCHIATRIC Hx Substance Use: No Other/Comment: substance abuse - SURGICAL HISTORY Hx Surgeries: Yes - ANESTHESIA Hx Anesthesia: Yes Hx Anesthesia Reactions: No Meds Allergies/Adverse Reactions: Allergies Allergy/AdvReac Type Severity Reaction Status Date / Time Penicillins Allergy RASH Verified 11/25/16 14:11 - Medications Medications: Current Medications Acetaminophen (Tylenol 325mg Tab) 650 mg PO Q6H PRN PRN Reason: Fever >100.4 F Acetaminophen (Tylenol 325mg Tab) 650 mg PO Q6 [facility] Iron Sucrose 200 mg/ Sodium (Chloride) 110 mls @ 110 mls/hr IVPB DAILY [facility] Stop: 01/06/17 20:01 Last Admin: 01/01/17 21:34 Dose: 110 mls/hr Methadone HCl (Methadone) 70 mg PO DAILY [facility] Last Admin: 01/01/17 12:24 Dose: 70 mg Ondansetron HCl (Zofran Inj) 4 mg IVP Q6H PRN PRN Reason: Nausea/Vomiting Pantoprazole Sodium (Protonix Inj) 40 mg IVP Q12 [facility]IL Last Admin: 01/01/17 21:17 Dose: 40 mg Tramadol HCl (Ultram) 50 mg PO Q6 PRN PRN Reason: Pain, severe (8-10) Last Admin: 01/01/17 23:54 Dose: 50 mg Zolpidem Tartrate (Ambien) 5 mg PO HS PRN PRN Reason: Sleep Last Admin: 01/01/17 23:54 Dose: 5 mg Physical Exam - Constitutional Appears: Well - Head Exam Head Exam: ATRAUMATIC - Eye Exam Eye Exam: Normal appearance - ENT Exam ENT Exam: Mucous Membranes Moist - Respiratory Exam Respiratory Exam: Clear to Auscultation Bilateral - Cardiovascular Exam Cardiovascular Exam: REGULAR RHYTHM - GI/Abdominal Exam GI & Abdominal Exam: Normal Bowel Sounds, Soft. absent: Tenderness - Rectal Exam Rectal Exam: Bloody Stool Results - Vital Signs Recent Vital Signs: Last Vital Signs Temp 98.2 F 01/01/17 23:46 Pulse 78 01/01/17 23:46 Resp 10 L 01/01/17 23:46 BP 122/78 01/01/17 23:46 Pulse Ox 99 01/01/17 18:00 - Labs Result Diagrams: 01/01/17 08:20 01/01/17 08:20 Labs: Laboratory Results - last 24 hr 12/31/16 12/31/16 01/01/17 23:40 23:56 00:30 WBC RBC Hgb Hct MCV MCH MCHC RDW Plt Count PT 12.2 INR 1.2 APTT 27.4 Sodium 139 Potassium 4.4 Chloride 106 Carbon Dioxide 25 Anion Gap 13 BUN 17 Creatinine 0.6 L Est GFR ( Amer) > 60 Est GFR (Non-Af Amer) > 60 Random Glucose 104 Calcium 8.4 Phosphorus Magnesium Total Bilirubin 0.3 AST 28 ALT 32 Alkaline Phosphatase 49 Total Protein 5.7 L Albumin 3.3 L Globulin 2.4 Albumin/Globulin Ratio 1.4 Lipase 37 Urine Opiates Screen Urine Methadone Screen Ur Barbiturates Screen Ur Phencyclidine Scrn Ur Amphetamines Screen U Benzodiazepines Scrn U Oth Cocaine Metabols U Cannabinoids Screen Blood Type O POSITIVE Antibody Screen Negative Crossmatch See Detail BBK History Checked Patient has bt 01/01/17 01/01/17 01/01/17 02:00 08:20 08:20 WBC 5.4 RBC 2.75 L Hgb 7.7 L Hct 23.3 L MCV 84.8 MCH 27.9 MCHC 32.9 L RDW 17.0 H Plt Count 246 PT INR APTT Sodium 141 Potassium 4.3 Chloride 110 H Carbon Dioxide 26 Anion Gap 9 L BUN 18 Creatinine 0.6 L Est GFR ( Amer) > 60 Est GFR (Non-Af Amer) > 60 Random Glucose 89 Calcium 8.0 L Phosphorus 3.4 3.6 Magnesium 1.9 Total Bilirubin AST ALT Alkaline Phosphatase Total Protein Albumin Globulin Albumin/Globulin Ratio Lipase Urine Opiates Screen Urine Methadone Screen Ur Barbiturates Screen Ur Phencyclidine Scrn Ur Amphetamines Screen U Benzodiazepines Scrn U Oth Cocaine Metabols U Cannabinoids Screen Blood Type Antibody Screen Crossmatch BBK History Checked 01/01/17 11:40 WBC RBC Hgb Hct MCV MCH MCHC RDW Plt Count PT INR APTT Sodium Potassium Chloride Carbon Dioxide Anion Gap BUN Creatinine Est GFR ( Amer) Est GFR (Non-Af Amer) Random Glucose Calcium Phosphorus Magnesium Total Bilirubin AST ALT Alkaline Phosphatase Total Protein Albumin Globulin Albumin/Globulin Ratio Lipase Urine Opiates Screen Negative Urine Methadone Screen Positive H Ur Barbiturates Screen Negative Ur Phencyclidine Scrn Negative Ur Amphetamines Screen Negative U Benzodiazepines Scrn Positive U Oth Cocaine Metabols Negative U Cannabinoids Screen Negative Blood Type Antibody Screen Crossmatch BBK History Checked Assessment & Plan (1) GI bleed Assessment and Plan: Returns with recurrent GI bleeding and anemia. During last admission had upper endoscopy including 130 cm of jejunum and colonoscopy extending 30 cm into ileum and no source of bleeding seen. Will discuss with radiology Tuesday further testing. Monitor Hgb. Patient also receiving IV iron as per hematology. Status: Acute
[2017-01-02 06:58] LABS: HEMATOCRIT 27.5 % (35.0-51.0); MEAN CELL VOLUME 85.4 fl (80.0-94.0); MEAN CORPUSCULAR HEMOGLOBIN 28.1 pg (27.0-31.0); MEAN CORPUSCULAR HGB CONC 32.9 g/dL (33.0-37.0); RED CELL DISTRIBUTION WIDTH 16.6 % (11.5-14.5); WHITE BLOOD COUNT 6.8 K/uL (4.8-10.8)
[2017-01-02 07:45] LABS: BLOOD UREA NITROGEN 7 mg/dl (9-20); CALCIUM 8.4 mg/dL (8.4-10.2); CHLORIDE 108 mmol/L (98-107); GFR AFRICAN-AMERICAN > 60; GLUCOSE,RANDOM 81 mg/dL (75-110); POTASSIUM 3.9 MMOL/L (3.6-5.0); SODIUM 142 mmol/l (132-148)
[2017-01-02 08:01] LABS: CARBON DIOXIDE 28 mmol/L (22-30)
--- NOTE | 2017-01-02 08:38 | CP.CCUPN ---
CCU Subjective - Physician Review Events Since Last Encounter (Free Text): 01/02/17 08:36 Patient awake, no distress, no fever, no pressors, follow commands, events reviewed CCU Objective - Vital Signs / Intake & Output Vital Signs (Last 4 hours): Vital Signs Temp Pulse Resp BP Pulse Ox 01/02/17 08:00 98.5 F 71 18 106/69 97 01/02/17 05:49 98.7 F 83 18 100/57 L 99 Intake and Output (Last 8hrs): Intake & Output 01/01/17 01/02/17 01/02/17 22:59 06:59 14:59 Intake Total 950 300 Balance 950 300 Weight 223 lb Intake: IV 625 Intake, Piggyback 100 Oral 200 Blood Product 325 Other: # Voids Urine, Voided 1 1 # Bowel Movements 1 - Physical Exam Head: Positive for: Atraumatic, Normocephalic Pupils: Positive for: PERRL Extroacular Muscles: Positive for: EOMI Conjunctiva: Positive for: Normal Mouth: Positive for: Moist Mucous Membranes Pharnyx: Positive for: Normal Nose (External): Positive for: Atraumatic Neck: Positive for: Normal Range of Motion Respiratory/Chest: Positive for: Clear to Auscultation Cardiovascular: Positive for: Regular Rate and Rhythm Abdomen: Positive for: Normal Bowel Sounds Lower Extremity: Positive for: Normal Inspection Neurological: Positive for: GCS=15, Speech Normal Psychiatric: Positive for: Alert, Oriented x 3 - Medications Active Medications: Active Medications Generic Name Dose Route Start Last Admin Trade Name Freq PRN Reason Stop Dose Admin Acetaminophen 650 mg 01/01/17 00:15 Tylenol 325mg Tab PO Q6H PRN Fever >100.4 F Acetaminophen 650 mg 01/02/17 06:01 Tylenol 325mg Tab PO Q6 PRN Other Iron Sucrose 200 mg/ Sodium 110 mls @ 110 mls/hr 01/01/17 20:00 01/01/17 21: 34 Chloride IVPB 01/06/17 20:01 110 mls/hr DAILY [facility] Administration Methadone HCl 70 mg 01/01/17 11:30 01/01/17 12:24 Methadone PO 70 mg DAILY [facility] Administration Ondansetron HCl 4 mg 01/01/17 00:15 Zofran Inj IVP Q6H PRN Nausea/Vomiting Pantoprazole Sodium 40 mg 01/01/17 09:00 01/01/17 21:17 Protonix Inj IVP 40 mg Q12 AKIL Administration Tramadol HCl 50 mg 01/01/17 23:41 01/01/17 23:54 Ultram PO 50 mg Q6 PRN Administration Pain, severe (8-10) Zolpidem Tartrate 5 mg 01/01/17 23:42 01/01/17 23:54 Ambien PO 5 mg HS PRN Administration Sleep - Patient Studies Lab Studies: Lab Studies 01/02/17 01/02/17 01/01/17 Range/Units 07:00 05:30 11:40 WBC 6.8 (4.8-10.8) K/uL RBC 3.22 L (4.40-5.90) Mil/uL Hgb 9.0 L (12.0-18.0) g/dL Hct 27.5 L (35.0-51.0) % MCV 85.4 (80.0-94.0) fl MCH 28.1 (27.0-31.0) pg MCHC 32.9 L (33.0-37.0) g/dL RDW 16.6 H (11.5-14.5) % Plt Count 242 (130-400) K/uL Sodium 142 (132-148) mmol/l Potassium 3.9 (3.6-5.0) MMOL/L Chloride 108 H (98-107) mmol/L Carbon Dioxide 28 (22-30) mmol/L Anion Gap 10 (10-20) BUN 7 L (9-20) mg/dl Creatinine 0.7 L (0.8-1.5) mg/dL Est GFR ( Amer) > 60 Est GFR (Non-Af Amer) > 60 Random Glucose 81 (75-110) mg/dL Calcium 8.4 (8.4-10.2) mg/dL Phosphorus (2.5-4.5) mg/dl Magnesium (1.6-2.3) MG/DL Urine Opiates Screen Negative (NEGATIVE) Urine Methadone Screen Positive H (NEGATIVE) Ur Barbiturates Screen Negative (NEGATIVE) Ur Phencyclidine Scrn Negative (NEGATIVE) Ur Amphetamines Screen Negative (NEGATIVE) U Benzodiazepines Scrn Positive (NEGATIVE) U Oth Cocaine Metabols Negative (NEGATIVE) U Cannabinoids Screen Negative (NEGATIVE) Blood Type Antibody Screen Crossmatch BBK History Checked 01/01/17 01/01/17 12/31/16 Range/Units 08:20 08:20 23:56 WBC 5.4 (4.8-10.8) K/uL RBC 2.75 L (4.40-5.90) Mil/uL Hgb 7.7 L (12.0-18.0) g/dL Hct 23.3 L (35.0-51.0) % MCV 84.8 (80.0-94.0) fl MCH 27.9 (27.0-31.0) pg MCHC 32.9 L (33.0-37.0) g/dL RDW 17.0 H (11.5-14.5) % Plt Count 246 (130-400) K/uL Sodium 141 (132-148) mmol/l Potassium 4.3 (3.6-5.0) MMOL/L Chloride 110 H (98-107) mmol/L Carbon Dioxide 26 (22-30) mmol/L Anion Gap 9 L (10-20) BUN 18 (9-20) mg/dl Creatinine 0.6 L (0.8-1.5) mg/dL Est GFR ( Amer) > 60 Est GFR (Non-Af Amer) > 60 Random Glucose 89 (75-110) mg/dL Calcium 8.0 L (8.4-10.2) mg/dL Phosphorus 3.6 (2.5-4.5) mg/dl Magnesium 1.9 (1.6-2.3) MG/DL Urine Opiates Screen (NEGATIVE) Urine Methadone Screen (NEGATIVE) Ur Barbiturates Screen (NEGATIVE) Ur Phencyclidine Scrn (NEGATIVE) Ur Amphetamines Screen (NEGATIVE) U Benzodiazepines Scrn (NEGATIVE) U Oth Cocaine Metabols (NEGATIVE) U Cannabinoids Screen (NEGATIVE) Blood Type O POSITIVE Antibody Screen Negative Crossmatch See Detail BBK History Checked Patient has bt Laboratory Results - last 24 hr 12/31/16 01/01/17 01/01/17 23:56 08:20 08:20 WBC 5.4 RBC 2.75 L Hgb 7.7 L Hct 23.3 L MCV 84.8 MCH 27.9 MCHC 32.9 L RDW 17.0 H Plt Count 246 Sodium 141 Potassium 4.3 Chloride 110 H Carbon Dioxide 26 Anion Gap 9 L BUN 18 Creatinine 0.6 L Est GFR ( Amer) > 60 Est GFR (Non-Af Amer) > 60 Random Glucose 89 Calcium 8.0 L Phosphorus 3.6 Magnesium 1.9 Urine Opiates Screen Urine Methadone Screen Ur Barbiturates Screen Ur Phencyclidine Scrn Ur Amphetamines Screen U Benzodiazepines Scrn U Oth Cocaine Metabols U Cannabinoids Screen Blood Type O POSITIVE Antibody Screen Negative Crossmatch See Detail BBK History Checked Patient has bt 01/01/17 01/02/17 01/02/17 11:40 05:30 07:00 WBC 6.8 RBC 3.22 L Hgb 9.0 L Hct 27.5 L MCV 85.4 MCH 28.1 MCHC 32.9 L RDW 16.6 H Plt Count 242 Sodium 142 Potassium 3.9 Chloride 108 H Carbon Dioxide 28 Anion Gap 10 BUN 7 L Creatinine 0.7 L Est GFR ( Amer) > 60 Est GFR (Non-Af Amer) > 60 Random Glucose 81 Calcium 8.4 Phosphorus Magnesium Urine Opiates Screen Negative Urine Methadone Screen Positive H Ur Barbiturates Screen Negative Ur Phencyclidine Scrn Negative Ur Amphetamines Screen Negative U Benzodiazepines Scrn Positive U Oth Cocaine Metabols Negative U Cannabinoids Screen Negative Blood Type Antibody Screen Crossmatch BBK History Checked Critical Care Progress Note - Nutrition Nutrition: Nutrition Category Date Time Status Liquid Diet [DIET] Diets 01/01/17 Lunch Active Assessment/Plan - Assessment and Plan (Free Text) Assessment: A/P Recurrent GI bleeding, anemia, h/o gastric bypass - Transfusion as needed - Follow CBC - Continue meds - GI follow up
--- NOTE | 2017-01-02 10:04 | CP.PCM.PN ---
Subjective - Date & Time of Evaluation Date of Evaluation: 01/02/17 Time of Evaluation: 10:05 - Subjective Subjective: C/O IV SITE PAIN IN L ARM--IV REMOVED BY NURSE ALREADY DENIES FURTHER RECTAL BLEEDING NO ABDOMINAL PAINS/NAUSEA/VOMITING Objective - Vital Signs/Intake and Output Vital Signs (last 24 hours): Temp Pulse Resp BP Pulse Ox 98.5 F 71 18 106/69 97 01/02/17 08:00 01/02/17 08:00 01/02/17 08:00 01/02/17 08:00 01/02/17 08:00 Intake and Output: 01/02/17 01/02/17 06:59 18:59 Intake Total 425 100 Balance 425 100 - Medications Medications: Current Medications Acetaminophen (Tylenol 325mg Tab) 650 mg PO Q6H PRN PRN Reason: Fever >100.4 F Acetaminophen (Tylenol 325mg Tab) 650 mg PO Q6 PRN PRN Reason: Other Iron Sucrose 200 mg/ Sodium (Chloride) 110 mls @ 110 mls/hr IVPB DAILY [facility] Stop: 01/06/17 20:01 Last Admin: 01/02/17 08:37 Dose: 110 mls/hr Methadone HCl (Methadone) 70 mg PO DAILY [facility] Last Admin: 01/02/17 08:36 Dose: 70 mg Ondansetron HCl (Zofran Inj) 4 mg IVP Q6H PRN PRN Reason: Nausea/Vomiting Pantoprazole Sodium (Protonix Inj) 40 mg IVP Q12 AKIL Last Admin: 01/02/17 08:36 Dose: 40 mg Tramadol HCl (Ultram) 50 mg PO Q6 PRN PRN Reason: Pain, severe (8-10) Last Admin: 01/01/17 23:54 Dose: 50 mg Zolpidem Tartrate (Ambien) 5 mg PO HS PRN PRN Reason: Sleep Last Admin: 01/01/17 23:54 Dose: 5 mg - Labs Labs: 01/02/17 07:00 01/02/17 05:30 PT 12.2 Seconds (9.8-13.1) 01/01/17 00:30 INR 1.2 (0.9-1.2) 01/01/17 00:30 APTT 27.4 Seconds (25.6-37.1) 09/23/17 00:30 - Head Exam Head Exam: ATRAUMATIC, NORMAL INSPECTION, NORMOCEPHALIC - Eye Exam Eye Exam: EOMI, Normal appearance, PERRL Pupil Exam: NORMAL ACCOMODATION, PERRL - ENT Exam ENT Exam: Mucous Membranes Moist, Normal Exam - Neck Exam Neck Exam: Full ROM, Normal Inspection. absent: Lymphadenopathy - Respiratory Exam Respiratory Exam: Clear to Ausculation Bilateral, NORMAL BREATHING PATTERN - Cardiovascular Exam Cardiovascular Exam: REGULAR RHYTHM, +S1, +S2. absent: Murmur - GI/Abdominal Exam GI & Abdominal Exam: Soft, Normal Bowel Sounds. absent: Tenderness - Rectal Exam Rectal Exam: NORMAL INSPECTION - Extremities Exam Extremities Exam: Full ROM, Normal Capillary Refill, Normal Inspection. absent : Joint Swelling, Pedal Edema - Back Exam Back Exam: NORMAL INSPECTION - Neurological Exam Neurological Exam: Alert, Awake, CN II-XII Intact, Normal Gait, Oriented x3 - Psychiatric Exam Psychiatric exam: Normal Affect, Normal Mood - Skin Skin Exam: Dry, Intact, Normal Color, Warm Assessment and Plan - Assessment and Plan (Free Text) Assessment: ACUTE GI BLEEDING ANEMIA OF BLOOD LOSS Plan: WILL DISCUSS FURTHER EVAL WITH RADIOLOGY AND GI
[2017-01-02 15:42] VITALS: BP 113/73; PULSE 76; RESP 20; TEMP 98.5; O2SAT 96
--- NOTE | 2017-01-03 08:37 | PN ---
DATE: 01/01/2017 CRITICAL CARE PROGRESS NOTE LOCATION: The patient in ICU, bed 432. TIME SPENT: 35 minutes. SUBJECTIVE: The patient is seen and examined at the bedside. Past medical, surgical, and social history reviewed and events since admission reviewed. A 26-year-old male with past medical history of GI bleed, iron deficiency anemia, status post gastric bypass surgery, opioid abuse, on methadone. Recently admitted to hospital for GI bleed. The patient had endoscopy, colonoscopy x2, and Meckel's bleeding scan, all reportedly negative. Readmitted with melena, hypotension, and tachycardia. In the ER, the patient's hemoglobin/hematocrit 8/25.1, admitted to ICU for further evaluation, noted to have another episode of fresh bleeding this morning. Remains alert and awake, follows commands appropriate. Denies nausea, vomiting, palpitation, or chest pain. No abdominal discomfort. PHYSICAL EXAMINATION: VITAL SIGNS: Temperature 98, heart rate 79, blood pressure 114/62, mean arterial pressure 79, respiratory rate 14, and oxygen saturation 98%. Intake, status post transfusion 2 units of packed red blood cells. Weight 220 pounds. HEENT: Pupils are reactive. Conjunctivae pale. Sclerae anicteric. NECK: Supple. CHEST: Bilateral breath sounds, clear to auscultation. HEART: Rhythm regular. S1 and S2 normal intensity. ABDOMEN: Bowel sounds present and soft. Liver and spleen not palpable. Bladder not distended. EXTREMITIES: No clubbing, cyanosis, or edema. NEUROLOGIC: Nonfocal. LABORATORY DATA: WBC 5.4, hemoglobin 7.7, hematocrit 23.3, and platelet count 246, MCV 84.8, PT 12.2, INR 1.2, PTT 27.4. SMA-7: Sodium 141, potassium 4.3, chloride 110, CO2 26, blood urea nitrogen 18, creatinine 0.6, glucose 89, calcium 8, phosphorous 3.6, magnesium 1.9, lipase 37, AST 28, ALT 32, and alkaline phosphatase 59. Electrocardiogram, normal sinus rhythm, normal electrical axis. No ischemic changes. CURRENT MEDICATIONS: Include Tylenol 650 mg q. 6 hours p.r.n., methadone 70 mg p.o. daily, Zofran formula IV q. 6 hours, Protonix 40 IV q. 12 hours, D5 half normal with 20 of KCl at 125 mL per hour. IMPRESSION: 1. Gastrointestinal bleed noted on recent admission and workup including EGD, colonoscopy, and Meckel's bleeding scan; all reportedly negative. Status post transfusion of multiple units of packed red blood cells. May need angiogram to assess the source of bleeding. Dr. Prince and Dr. Gracia on consult. Awaiting for further evaluation. Recommended to monitor and to start on clear liquids, transfuse 2 more units of packed red blood cells. 2. History of gastric bypass surgery, stable. 3. History of opioid abuse, on methadone. We will resume methadone 70 mg, verified with methadone clinic. 3. Neurologic: Alert, oriented to name, place, and time. 4. Pulmonary: Stable. 5. Cardiac: Remains normotensive after transfusion of 2 units of packed red blood cells. 6. Hematology: Anemia secondary to acute blood loss, transfused, source suspected gastrointestinal. Repeat hemoglobin 7.7, transfused another 2 units to maintain hemoglobin close to 10. We will follow up with hematology consult. 7. Endocrine. No issues noted. 8. Infectious Disease. We will monitor without antibiotics, if he continues to bleed. We will start prophylactic antibiotic empirically. 9. Hold anticoagulation for deep vein thrombosis prophylaxis, as the patient is noted to have active bleeding with a low hemoglobin requiring transfusion of multiple units of packed cells. Continue Venodyne boots. Yon Deleon MD
[2017-01-03] MEDS ORDERED: Pantoprazole 40 mg EC Tab PO SCH (09:00)
--- NOTE | 2017-01-03 09:24 | CP.PCM.DIS ---
Provider - Provider Date of Admission: 12/31/16 22:16 Attending physician: Boni Patino MD Time Spent in preparation of Discharge (in minutes): 30 Diagnosis - Discharge Diagnosis (1) Anemia Status: Acute (2) GI bleed Status: Acute (3) Opiate dependence Status: Acute Hospital Course - Lab Results Lab Results: Most Recent Lab Values WBC 6.8 K/uL (4.8-10.8) 01/02/17 07:00 RBC 3.22 Mil/uL (4.40-5.90) L 01/02/17 07:00 Hgb 9.0 g/dL (12.0-18.0) L 01/02/17 07:00 Hct 27.5 % (35.0-51.0) L 01/02/17 07:00 MCV 85.4 fl (80.0-94.0) 01/02/17 07:00 MCH 28.1 pg (27.0-31.0) 01/02/17 07:00 MCHC 32.9 g/dL (33.0-37.0) L 01/02/17 07:00 RDW 16.6 % (11.5-14.5) H 01/02/17 07:00 Plt Count 242 K/uL (130-400) 01/02/17 07:00 MPV 8.6 fl (7.2-11.7) 12/31/16 23:40 Neut % (Auto) 70.6 % (50.0-75.0) 12/31/16 23:40 Lymph % (Auto) 21.5 % (20.0-40.0) 12/31/16 23:40 [place] % (Auto) 6.8 % (0.0-10.0) 12/31/16 23:40 Eos % (Auto) 0.7 % (0.0-4.0) 12/31/16 23:40 Baso % (Auto) 0.4 % (0.0-2.0) 12/31/16 23:40 Neut # 5.4 K/uL (1.8-7.0) 12/31/16 23:40 Lymph # 1.6 K/uL (1.0-4.3) 12/31/16 23:40 [place] # 0.5 K/uL (0.0-0.8) 12/31/16 23:40 Eos # 0.1 K/uL (0.0-0.7) 12/31/16 23:40 Baso # 0.0 K/uL (0.0-0.2) 12/31/16 23:40 PT 12.2 Seconds (9.8-13.1) 01/01/17 00:30 INR 1.2 (0.9-1.2) 01/01/17 00:30 APTT 27.4 Seconds (25.6-37.1) 01/01/17 00:30 Sodium 142 mmol/l (132-148) 01/02/17 05:30 Potassium 3.9 MMOL/L (3.6-5.0) 01/02/17 05:30 Chloride 108 mmol/L (98-107) H 01/02/17 05:30 Carbon Dioxide 28 mmol/L (22-30) 01/02/17 05:30 Anion Gap 10 (10-20) 01/02/17 05:30 BUN 7 mg/dl (9-20) L 01/02/17 05:30 Creatinine 0.7 mg/dL (0.8-1.5) L 01/02/17 05:30 Est GFR ( Amer) > 60 01/02/17 05:30 Est GFR (Non-Af Amer) > 60 01/02/17 05:30 Random Glucose 81 mg/dL (75-110) 01/02/17 05:30 Calcium 8.4 mg/dL (8.4-10.2) 01/02/17 05:30 Phosphorus 3.6 mg/dl (2.5-4.5) 01/01/17 08:20 Magnesium 1.9 MG/DL (1.6-2.3) 01/01/17 08:20 Total Bilirubin 0.3 mg/dl (0.2-1.3) 12/31/16 23:40 AST 28 U/L (17-59) 12/31/16 23:40 ALT 32 U/L (21-72) 12/31/16 23:40 Alkaline Phosphatase 49 U/L (38-126) 12/31/16 23:40 Total Protein 5.7 G/DL (6.3-8.2) L 12/31/16 23:40 Albumin 3.3 g/dL (3.5-5.0) L 12/31/16 23:40 Globulin 2.4 gm/dL (2.2-3.9) 12/31/16 23:40 Albumin/Globulin Ratio 1.4 (1.0-2.1) 12/31/16 23:40 Lipase 37 U/L (23-300) 12/31/16 23:40 Urine Opiates Screen Negative (NEGATIVE) 01/01/17 11:40 Urine Methadone Screen Positive (NEGATIVE) H 01/01/17 11:40 Ur Barbiturates Screen Negative (NEGATIVE) 01/01/17 11:40 Ur Phencyclidine Scrn Negative (NEGATIVE) 01/01/17 11:40 Ur Amphetamines Screen Negative (NEGATIVE) 01/01/17 11:40 U Benzodiazepines Scrn Positive (NEGATIVE) 01/01/17 11:40 U Oth Cocaine Metabols Negative (NEGATIVE) 01/01/17 11:40 U Cannabinoids Screen Negative (NEGATIVE) 01/01/17 11:40 Blood Type O POSITIVE 12/31/16 23:56 Antibody Screen Negative 12/31/16 23:56 Crossmatch See Detail 12/31/16 23:56 BBK History Checked Patient has bt 12/31/16 23:56 - Hospital Course Hospital Course: GI BLEED STOPPED PT REFUSED TO STAY IN HOSPITAL FOR FURTHER WORKUP Discharge Exam - Head Exam Head Exam: ATRAUMATIC, NORMAL INSPECTION, NORMOCEPHALIC - Eye Exam Eye Exam: EOMI, Normal appearance, PERRL Pupil Exam: NORMAL ACCOMODATION, PERRL - GI/Abdominal Exam GI & Abdominal Exam: Normal Bowel Sounds - Rectal Exam Rectal Exam: NORMAL INSPECTION - Neurological Exam Neurological exam: Alert, CN II-XII Intact, Normal Gait, Oriented x3, Reflexes Normal - Psychiatric Exam Psychiatric exam: Normal Affect, Normal Mood - Skin Skin Exam: Dry, Intact, Normal Color, Warm Discharge Plan - Follow Up Plan Condition: CRITICAL Disposition: HOME/ ROUTINE Patient education suggested?: Yes Instructions: Gastrointestinal Bleeding (DC) Additional Instructions: FOLLOW UP WITH PCP WITHIN ONE WEEK
== END 2017-01-02 18:20 | disposition home or self-care (01) | DRG 395 ==
LOC: H.ER 20:32 → H.ERHOLD 22:16 → H.ICU/CCU 01-01 00:39 → H.TEL 01-02 11:41
PROVIDERS: ADMIT Internal Medicine Pulmonary Disease; ATTEND Internal Medicine Pulmonary Disease
PROC: 30233N1 Transfusion of Nonautologous Red Blood Cells into Peripheral Vein, Percutaneous Approach (ICD-10-PCS; principal; 2017-01-01)
DX: D62 Acute posthemorrhagic anemia (principal); F11.20 Opioid dependence, uncomplicated; K92.2 Gastrointestinal hemorrhage, unspecified; Z98.84 Bariatric surgery status; Z88.0 Allergy status to penicillin